=== PATIENT | male | born 1935 | race Caucasian/White ===

== ENCOUNTER 2022-08-13 06:24 | Outpatient (CLI) | payer MEDICARE, OTHER ==
--- NOTE | 2022-08-13 09:06 | MRI Report ---
PROCEDURE: MRI lumbar spine without contrast INDICATIONS: LUMBAR RADICULOPATHY TECHNIQUE: Noncontrast sagittal T1 spin echo and T2 fast echo, sagittal STIR, axial T1 and T2 fast spin echo thr ough the lumbar spine. In cases with scoliosis, additional coronal T2 fast spin echo may be performe d. COMPARISON: 04/30/2014 FINDINGS: Image quality: Excellent. Alignment and Curvature: Grade 1 anterior listhesis at L4-5 Bone Marrow: Degenerative endplate chronic changes noted at L5-S1 Spinal Cord: Conus medullaris terminates at the L1 level. Visualized cord demonstrates normal signa l and size. Paraspinous Soft Tissues: No paravertebral masses. T12-L1: Normal in appearance. L1-L2: Normal in appearance. L2-L3: Normal in appearance. L3-L4: Disc height is preserved. Circumferential disc bulge and hypertrophic facet joints combines with ligamentum flavum laxity to result in moderate central stenosis. No foraminal stenosis L4-L5: Disc height is preserved. Circumferential disc bulge combines with ligamentum flavum laxity and hypertrophic facet joints to result in severe central stenosis. Moderate right and severe left fo raminal stenosis L5-S1: Disc height loss present. Mild circumferential disc bulge without central stenosis. Severe lef t and moderate right foraminal stenosis IMPRESSION: 1. Multilevel degenerative disc disease and arthropathy results in varying degrees of central and for aminal stenosis including severe central and foraminal stenosis at L4-5 Reviewed by: Juan Jose Chavez MD on 08/13/2022 8:05 AM AKST Approved by: Juan Jose Chavez MD on 08/13/2022 8:05 AM [place] Station ID: [id number]
--- NOTE | 2022-08-13 09:53 | XRAY Report ---
PROCEDURE: Hips 2V BILAT INDICATIONS: LUMBAR RADICULOPATHY TECHNIQUE: A single AP view of the pelvis and additional views of each hip was obtained COMPARISON: None FINDINGS: Bones: Generalized decreased osseous mineralization present. Moderate bilateral hip joint space narro wing present. Small marginal osteophyte noted on the right. Both femoral heads have an appropriate to contour. Pelvic ring intact. Degenerative changes noted lower lumbar spine Soft tissues: No suspicious soft tissue calcifications or masses. IMPRESSION: Moderate bilateral hip osteoarthritis, greater on the right Reviewed by: Juan Jose Chavez MD on 08/13/2022 8:51 AM [place] Approved by: Juan Jose Chavez MD on 08/13/2022 8:51 AM [place] Station ID: [id number]
--- NOTE | 2022-08-13 14:03 | XRAY Report ---
PROCEDURE: Lumbar Spine 2 View INDICATIONS: LUMBAR RADICULOPATHY TECHNIQUE: 3 views of the lumbar spine were acquired. COMPARISON: None. FINDINGS: Bones: 5 [id number]-madpona vertebrae are present. There is normal bony alignment. No vertebral body compression fractures. No suspicious bony lesions. Degenerative disc space narrowing and arthropath y noted in the lower lumbar spine Soft tissues: Overlying bowel gas pattern is normal. No suspicious soft tissue calcifications. IMPRESSION: Degenerative disc disease and arthropathy noted lower lumbar spine. No fracture or traumatic malalign ment Reviewed by: Juan Jose Chavez MD on 08/13/2022 1:01 PM [place] Approved by: Juan Jose Chavez MD on 08/13/2022 1:01 PM [place] Station ID: [id number]
== END 2022-08-13 06:25 | disposition home or self-care (01) ==
LOC: DI 06:24
PROVIDERS: ATTEND Nurse Practitioner Family
DX: M51.36 Other intervertebral disc degeneration, lumbar region (principal); M48.061 Spinal stenosis, lumbar region without neurogenic claudication; M51.37 Other intervertebral disc degeneration, lumbosacral region; M48.07 Spinal stenosis, lumbosacral region; M47.816 Spondylosis without myelopathy or radiculopathy, lumbar region; M16.0 Bilateral primary osteoarthritis of hip